=== PATIENT | female | born 1980 | race Caucasian/White ===

== ENCOUNTER 2019-05-07 20:38 | Inpatient (IN) | payer BC ==
[2019-05-07 21:27] VITALS: TEMP 98.2; BMI 36.9
[2019-05-07] MEDS ORDERED: Butorphanol Tartrate 1 MG/ML VIAL SLOW IVP PRN (21:50)
[2019-05-07] MEDS ORDERED: Ondansetron PF 4 MG/2 ML Vial IVP PRN (21:50)
[2019-05-07] MEDS ORDERED: Promethazine HCl 25 MG/ML VIAL IM PRN (21:50)
[2019-05-07] MEDS ORDERED: hydrALAZINE 20 MG/ML VIAL SLOW IVP PRN (21:50)
[2019-05-07] MEDS ORDERED: NIFEdipine 10 MG CAP PO SCH (22:00)
[2019-05-07 22:26] LABS: Medtox Reader # READER 4
[2019-05-07 22:27] LABS: Amphetamine Not Detected (NotDetected); Barbiturates Screen Not Detected (NotDetected); Benzodiazepine Screen Not Detected (NotDetected); Cocaine Metabolite Screen Not Detected (NotDetected); Medtox Control Line Valid? VALID (VALID); Methadone Not Detected (NotDetected); Methamphetamine Not Detected (NotDetected); Opiate Screen Not Detected (NotDetected); Oxycodone Screen Not Detected (NotDetected); Phencyclidine (PCP) Not Detected (NotDetected); THC/Cannabinoid Screen Not Detected (NotDetected); Tricyclic Screen Not Detected (NotDetected)
[2019-05-07] MEDS: Betamet Acet/Betamet Na Ph 30 MG/5 ML VIAL IM SCH (22:33)
[2019-05-07 22:41] LABS: Creatinine, Urine 39.55 mg/dL (47-110); Protein, Urine Random Quant Less than 10 mg/dL (1-14)
--- NOTE | 2019-05-07 22:44 | HP ---
TIME: 20:10. TIME OF EVALUATION: From 21:50 until 22:05. LOCATION: Labor and Delivery. REASON FOR ADMISSION: Severe range of blood pressures at 32 weeks and 6 days. This is a patient who had care in [place] and who is scheduled to see Briana Gotti and luan Aranda, later on next week. HISTORY OF PRESENT ILLNESS: This is a 38-year-old G2, P0, AB1, who is status post IVF this , who is now at 32 weeks and 6 days, who drove from [place] here with a family member and started complaining of headache. She went to the store and her blood pressure at the store was 186/110. She denies visual changes or right upper quadrant pain. She was followed by [facility] in [place] and had a recent ultrasound done on Saturday and the baby was "5 pounds and 11 ounces." She was also on baby aspirin. Although she does not have a history of chronic hypertension, she was to be started on oral Procardia 60 mg p.o. XL by her doctor in [place] due to an elevated blood pressure, but then on repeat blood pressure followup, it was normal, so he held off. She is here for possible blood pressure evaluation as she has not established care yet. REVIEW OF SYSTEMS: Complete review of systems was checked and is otherwise negative unless specified in the HPI. PAST MEDICAL HISTORY: Significant for hypothyroid and she takes Synthroid. This is not a new diagnosis. OTHER MEDICATIONS: Include low-dose aspirin, which she has been taking. Synthroid 50mcg, alternating with 75mcg PAST SURGICAL HISTORY: Includes a D and C in the past. She also had right and left knee surgery. ALLERGIES: ADHESIVE TAPE. SOCIAL HISTORY: Negative for alcohol, tobacco, or drug use. PHYSICAL EXAMINATION: VITAL SIGNS: Blood pressures 172/88, 166/80, and 161/78. GENERAL: She is in no acute distress. ABDOMEN: Soft and nontender. Cervical exam was deferred, but there is no gross evidence of bleeding. NST: On the nonstress test, heart tracing is reactive for 32 weeks with moderate variability and no pathological decelerations. There are no contractions on tocodynamometer. Baseline is around 130. ASSESSMENT: This is a 38-year-old, G2, P0, status post IVF this , who is at 32 weeks and 6 days with a due date of June 26, 2019, with -induced hypertension, not otherwise specified. PLAN: 1. I have seen the patient at bedside and given a detailed plan per ACOG guidelines. 2. I have written the plan on the white board in her room. 3. I will check a TSH due to her Synthroid use. 4. I have ordered a CBC, CMP, and a urine protein and creatinine. 5. I have ordered Celestone for lung maturity. 6. I have called Dr. Pulido and discussed the case with him in case we have to do delivery. 7. I have ordered all the routine OB labs including GBS culture. 8. I have ordered an ultrasound here for weight and presentation as the baby was breech on last ultrasound in [place]. 9. I have ordered Procardia 10 mg p.o. x1 now and we will see what she does. 10. I discussed with her that expectant management is the goal now due to immaturity of the child, but we may have to deliver if she has persistent severe breakthrough pressures on medication. Job ID: [id number] MTDConcepcion
--- NOTE | 2019-05-07 23:34 | ULT ---
US OB Complete STANDARD HISTORY: with hypertension. COMPARISON: None. FINDINGS: Real-time imaging of the pelvis shows a single viable intrauterine in a breech pr esentation. Cervical canal length is 3.9 cm. The amniotic fluid index is 11.1. The placenta is anterior in location. No previa. measurements are as follows: BPD: 8.5 cm, 34 weeks 3 days. Head circumference: 31.8 cm, 35 weeks 5 days. Abdominal circumference: 31.7 cm, 35 weeks 5 days. Femur length: 6.8 cm, 35 weeks 1 days. Limited assessment of anatomy was performed for this exam. The heart rate was 136 bpm. IMPRESSION: Single viable intrauterine in a breech presentation overall measurements corres ponding to a gestational age of 35 weeks 2 days with an estimated date of delivery of 06/09/2019. Placenta which is anterior in location, no previa.
[2019-05-08 00:04] LABS: Hemoglobin 11.9 g/dL (12.0-16.0); Mean Corpuscular HGB CONC 34.5 g/dL (32.0-36.0); Mean Corpuscular Hemoglobin 28.9 pg (27.0-31.0); Mean Corpuscular Volume 83.9 fL (78.0-98.0); Mean Platelet Volume 8.2 fL (7.4-10.4); Platelet Count 254 thou/uL (130-400); RBC Distribution Width 12.8 % (11.5-14.5); Red Blood Cell (RBC) Count 4.11 mill/uL (4.20-5.40)
[2019-05-08 00:28] LABS: ALT (SGPT) 9 U/L (8-55); AST (SGOT) 11 U/L (5-34); Albumin 3.4 g/dL (3.5-5.0); Alkaline Phosphatase 89 U/L (40-110); Anion Gap 13 mmol/L (10-20); BUN (Urea Nitrogen) 12 mg/dL (7.0-18.7); Bilirubin, Total 0.2 mg/dL (0.2-1.2); Calc. Creatinine Clearance 219 mL/min (70-130); Calcium 10.1 mg/dL (7.8-10.44); Carbon Dioxide 23 mmol/L (22-29); Chloride 104 mmol/L (98-107); Estimated GFR-MDRD Greater than 90; Globulin 2.7 g/dL (2.4-3.5); Glucose 89 mg/dL (70-105); Potassium 3.3 mmol/L (3.5-5.1); Protein, Total 6.1 g/dL (6.0-8.3); Sodium 137 mmol/L (136-145)
[2019-05-08 00:35] LABS: Syphilis Antibody Nonreactive (Nonreactive); Syphilis Antibody Index 0.03 S/CO (<1.00 Non-Reactive)
[2019-05-08 00:36] LABS: HBSAg Index 0.19 S/CO (0-0.99); Hep B Surf Ag Non-Reactive S/CO (NonReactive)
[2019-05-08 00:46] LABS: HIV (1/2) Antibody/Antigen Non-Reactive (NonReactive); HIV 1/2 INDEX 0.08 S/CO (<1.00)
--- NOTE | 2019-05-08 00:46 | PDOC.EVN ---
Event Note - Event Note Event Note: Lab check: labs ok TSH ok UP negative Tox negative
--- NOTE | 2019-05-08 00:47 | PDOC.EVN ---
Event Note - Event Note Event Note: sono breech presentation
--- NOTE | 2019-05-08 05:50 | PDOC.LDPN ---
Labor & Delivery Progress Note - Objective Vital signs reviewed and normal: yes (BPs are normal without meds (one BP of 150 ).) General: resting Uterine fundus: non tender [place] contractions every: none - Assessment (1) Advanced maternal age (AMA), 40 years or greater Code(s): [id number] - Current Visit: Yes Status: Acute (2) induced hypertension Code(s): O13.9 - GESTATIONAL HTN W/O SIGNIFICANT PROTEINURIA, UNSP TRIMESTER Current Visit: Yes Status: Acute Plan: other (Resting well. No PIH sxs. Requesting DC to home after second celestone this pm at 2200. Off monitors. Follow BPs for now. If home thios pm, needs follow up as scheduled with Jayla braswell.)
[2019-05-08] MEDS ORDERED: Levothyroxine Sodium 50 MCG TAB PO SCH (06:00)
[2019-05-08] MEDS ORDERED: Aspirin 81 mg Enteric Coated Tablet PO SCH ×2 (09:00→21:00)
[2019-05-08 09:18] VITALS: BP 139/64
[2019-05-08] MEDS: Betamet Acet/Betamet Na Ph 30 MG/5 ML VIAL IM SCH (21:51)
--- NOTE | 2019-05-08 22:23 | PDOC.EVN ---
Event Note - Event Note Event Note: Pg given next dose of steroids. Pt had some elevated BP early in the afternoon. Was given one dose of Hydralazine 5mg once. Since then BP has been relatively stable. No severe range pressures noted. most pressures have even ranged from 120-130. Pt denies any chest pain, SOB, headaches, vision changes. Denies any swelling. At this time we will discharge patient home. Pt has BP cuff. Advised at this time to monitor BP at home and has OB f/u visit on Saturday. Discussed return precautions. At this time after BP was stable throughout afternoon and night decided pt did not need any BP medication at this time. Addendum - Attending - Attending Attestation Date/Time: 05/09/19 [id number] I personally evaluated the patient and discussed the management with Dr. Ugalde. 38 yo at 33 weeks now s/p steroids x 2 doses. BPs look very good this PM. Will DC home with precautions, to f/u early this week for BP check at [facility]. I agree with the History, Examination, Assessment and Plan documented above.
--- NOTE | 2019-05-09 01:29 | DIS ---
DATE OF ADMISSION: 05/07/2019 DATE OF DISCHARGE: 05/08/2019 CONSULTS: None. IMAGING: ultrasound on 05/07/2019 showed single viable intrauterine in a breech presentation, overall measuring corresponding gestational age of 35 weeks and 2 days with an estimated date of delivery of 06/09/2019. Placenta in anterior location. No previa. DISCHARGE DIAGNOSES: 1. . 2. Advanced maternal age. 3. Gestational hypertension versus chronic hypertension. DISCHARGE MEDICATIONS: None. BRIEF HISTORY OF PRESENT ILLNESS AND HOSPITAL COURSE: This is a 38-year-old, G2, P0, AB1, who is status IVF , who comes in at 32 weeks and 6 days, who comes in from [place]. She has been on a baby aspirin throughout . She was started on oral Procardia 60 mg XL by due to elevated blood pressure, but then on repeat blood pressure followup, it was normal, so they held off. She is here for possible blood pressure elevation found at home. When she was initially admitted, her blood pressure was found to be 172/88, then 166/80, and then 161/78. We gave her one time dose of Procardia 10 mg, ordered routine OB labs which were overall insignificant. She had mild hypokalemia at 3.3. Her urine protein creatinine ratio was low. UDS was negative. Syphilis nonreactive. Hepatitis B nonreactive. HIV negative. Her hemoglobin was 11.9. We would trend her blood pressures throughout the day. When she was admitted, she was given a dose of Celestone and was kept here for 24 hours. Her blood pressures trended out into 130s and 140s. She did have a few 150s, had a few more elevations afternoon, gave one time dose of 5 mg hydralazine and since then, her blood pressures were ranging in the 120s and 130s. She got her 2nd dose of Celestone at 10 o'clock at night. At 2400 hours, the patient was doing well, was asymptomatic, so at this time we discharged her. DISPOSITION: Stable. DISCHARGE LOCATION: Home. ACTIVITY: Activity as tolerated. DIET: Regular diet. 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 She has appointment with Saturday to establish care. Discussed routine blood pressure precautions. She has a blood pressure cuff, gave instructions on checking blood pressure and gave her return precautions. Job ID: [id number]
== END 2019-05-08 22:20 | disposition home health service (06) | DRG 833 ==
LOC: L&D/OP 20:38 → L&D 21:05
PROVIDERS: ADMIT Obstetrics & Gynecology; ATTEND Obstetrics & Gynecology
DX: O13.3 Gestational [pregnancy-induced] hypertension without significant proteinuria, third trimester (principal); O09.523 Supervision of elderly multigravida, third trimester; Z3A.32 32 weeks gestation of pregnancy; O99.283 Endocrine, nutritional and metabolic diseases complicating pregnancy, third trimester; E03.9 Hypothyroidism, unspecified; O32.1XX0 Maternal care for breech presentation, not applicable or unspecified; E87.6 Hypokalemia
CPT/HCPCS: 36415; 76805; 80053; 80306; 82570; 84156; 84443; 85027; 86762; 86780; 86850; 86870; 86900; 86901; 87081; 87340; 87389; J0360; J0702

== ENCOUNTER 2019-05-12 08:30 | Day surgery (SDC) | payer BC ==
[2019-05-12] MEDS ORDERED: hydrALAZINE 20 MG/ML VIAL SLOW IVP PRN (09:37)
[2019-05-12 10:15] LABS: ALT (SGPT) 10 U/L (8-55); AST (SGOT) 11 U/L (5-34); Albumin 3.6 g/dL (3.5-5.0); Alkaline Phosphatase 97 U/L (40-110); Anion Gap 14 mmol/L (10-20); BUN (Urea Nitrogen) 10 mg/dL (7.0-18.7); Bilirubin, Total 0.3 mg/dL (0.2-1.2); Calc. Creatinine Clearance 0 mL/min (70-130); Calcium 10.1 mg/dL (7.8-10.44); Carbon Dioxide 22 mmol/L (22-29); Chloride 104 mmol/L (98-107); Estimated GFR-MDRD Greater than 90; Globulin 2.9 g/dL (2.4-3.5); Glucose 122 mg/dL (70-105); Potassium 3.5 mmol/L (3.5-5.1); Protein, Total 6.5 g/dL (6.0-8.3); Sodium 136 mmol/L (136-145)
[2019-05-12 10:16] LABS: #Basophils 0.1 thou/uL (0.0-0.2); #Eosinphils 0.2 thou/uL (0.0-0.7); #Monocytes 1.1 thou/uL (0.11-0.59); #Neutrophils 13.5 thou/uL (1.40-6.50); %Basophils 0.4 % (0.0-1.0); %Eosinophils 1.1 % (0.0-10.0); %Monocytes 6.5 % (0.0-10.0); %Neutrophils 80.1 % (42.0-75.0); Hemoglobin 12.7 g/dL (12.0-16.0); Mean Corpuscular HGB CONC 34.7 g/dL (32.0-36.0); Mean Corpuscular Volume 83.6 fL (78.0-98.0); Platelet Count 292 thou/uL (130-400); RBC Distribution Width 12.9 % (11.5-14.5); Red Blood Cell (RBC) Count 4.37 mill/uL (4.20-5.40); White Blood Cell (WBC) Count 16.8 thou/uL (4.8-10.8)
[2019-05-12 10:55] LABS: Creatinine, Urine 89.21 mg/dL (47-110)
--- NOTE | 2019-05-12 17:48 | SS ---
DATE OF ADMISSION: 05/12/2019 DATE OF DISCHARGE: 05/12/2019 EVALUATING PHYSICIAN: Biju Patino MD. CHIEF COMPLAINT: Elevated blood pressure at home. HISTORY OF PRESENT ILLNESS: Ms. Garcia is a 38-year-old, white, G2, P0, AB1, with an estimated date of confinement of 06/26/2019, who presents complaining of blood pressures to 180s systolic on her blood pressure cuff at home. Of note, is the fact that she was seen here with elevated blood pressures on the 12th of this month and was given a course of steroids. Her blood pressure stabilized and she was sent home on no medications. At the present time, she denies vaginal bleeding or loss of fluid. She reports active movement. PAST OBSTETRICAL HISTORY: One spontaneous miscarriage. PAST MEDICAL HISTORY: She was told she was possibly hypertensive over 10 years ago. Significant now for occasional PACs and hypothyroidism. PAST SURGICAL HISTORY: Includes both right and left knee surgeries, tonsillectomy and adenoidectomy, and D and C. CURRENT MEDICATIONS: 1. vitamins. 2. Synthroid 50 mcg daily. 3. Aspirin 81 mg daily. ALLERGIES: NO KNOWN ALLERGIES. SOCIAL HISTORY: Denies tobacco, alcohol, or drug use. FAMILY HISTORY: Unremarkable. REVIEW OF SYSTEMS: Denies headache, blurry vision, ruptured membranes, vaginal bleeding, or decreased movement. PHYSICAL EXAMINATION: VITAL SIGNS: Serial blood pressures are 142/94, 143/83, 143/83, and 147/90. GENERAL: She is pleasant, although appears anxious. She is in no acute distress. ABDOMEN: Soft, nontender, and gravid. heart rate tracing is stable with spontaneous accelerations. No decelerations are seen. No significant uterine contractions are noted. LABORATORY DATA: White count 16.8. Hemoglobin and hematocrit are 12.7 and 36.5. Platelet count 292,000. Chemistry; sodium 136, potassium 3.5, BUN 10, creatinine 0.63. Total bilirubin 0.3, AST and ALT are 11 and 10 respectively. Alkaline phosphatase is 97. Urine protein to creatinine ratio returns 0.157. ASSESSMENT: 1. A 33 and 4/7 week intrauterine . 2. Suspect chronic hypertension, currently without evidence of superimposed preeclampsia at this time. PLAN: In view of the patient's clinical course, at this time, I have elected to initiate Procardia XL 30 mg daily once a day. She was given a prescription for this x30 days. She has a followup appointment at [facility] to initiate care there. PIH precautions were reviewed with her in detail. Job ID: [id number] MTDD
== END 2019-05-12 11:30 | disposition home or self-care (01) ==
LOC: L&D/OP 08:30
PROVIDERS: ATTEND Student in an Organized Health Care Education/Training Program
DX: O99.89 Other specified diseases and conditions complicating pregnancy, childbirth and the puerperium (principal); R03.0 Elevated blood-pressure reading, without diagnosis of hypertension; O99.283 Endocrine, nutritional and metabolic diseases complicating pregnancy, third trimester; E03.9 Hypothyroidism, unspecified; O09.523 Supervision of elderly multigravida, third trimester; O09.293 Supervision of pregnancy with other poor reproductive or obstetric history, third trimester; Z3A.33 33 weeks gestation of pregnancy; Z79.82 Long term (current) use of aspirin; Z79.899 Other long term (current) drug therapy; Z91.048 Other nonmedicinal substance allergy status
CPT/HCPCS: 36415; 80053; 82570; 84156; 85025; 99283

== ENCOUNTER 2019-05-14 19:37 | Inpatient (IN) | payer BC ==
[~2019-05-14 19:37] MED LIST: Bupivacaine/Epinephrine 0.25% 30 ML VIAL ONE
[2019-05-14] MEDS ORDERED: Labetalol HCl 100 MG/20 ML VIAL SLOW IVP SCH (20:00)
[2019-05-14] MEDS ORDERED: Labetalol HCl 100 MG/20 ML VIAL SLOW IVP PRN (20:01)
[2019-05-14] MEDS ORDERED: Labetalol HCl 100 MG/20 ML VIAL ONE (20:05)
[2019-05-14] MEDS ORDERED: HYDROcodone/Acetaminophen 5/325 mg Tablet PO PRN ×2 (20:11)
[2019-05-14] MEDS ORDERED: Lidocaine 1% (PF) 30 ML VIAL SC PRN (20:11)
[2019-05-14] MEDS ORDERED: NS / Oxytocin 40 units/1000ml 1,000 ML IV PRN (20:11)
[2019-05-14] MEDS ORDERED: Ibuprofen 800 MG TAB PO PRN (20:11)
[2019-05-14] MEDS ORDERED: Ondansetron PF 4 MG/2 ML Vial IVP PRN (20:11)
[2019-05-14] MEDS ORDERED: Butorphanol Tartrate 1 MG/ML VIAL SLOW IVP PRN (20:11)
[2019-05-14] MEDS ORDERED: Calcium Gluc 4.6 MEQ/10 ML (100 MG/ML) SLOW IVP PRN (20:11)
[2019-05-14] MEDS ORDERED: Meperidine HCl/PF 25 MG/ML VIAL IM/IV PRN (20:11)
[2019-05-14] MEDS ORDERED: Promethazine HCl 25 MG/ML VIAL IM PRN (20:11)
[2019-05-14] MEDS ORDERED: Magnesium Sulfate 20 GM/WATER 500 ML BAG IVPB SCH (20:15)
[2019-05-14] MEDS ORDERED: NS w/ Oxytocin 10 units 500 ML IV SCH (20:15)
[2019-05-14 20:29] LABS: #Eosinphils 0.2 thou/uL (0.0-0.7); #Lymphocytes 2.9 thou/uL (1.20-3.40); #Monocytes 1.1 thou/uL (0.11-0.59); %Basophils 0.3 % (0.0-1.0); %Eosinophils 1.2 % (0.0-10.0); %Lymphocytes 17.9 % (21.0-51.0); %Monocytes 6.8 % (0.0-10.0); %Neutrophils 73.9 % (42.0-75.0); Hemoglobin 12.9 g/dL (12.0-16.0); Mean Corpuscular HGB CONC 35.1 g/dL (32.0-36.0); Mean Corpuscular Hemoglobin 29.2 pg (27.0-31.0); Mean Corpuscular Volume 83.2 fL (78.0-98.0); Mean Platelet Volume 8.2 fL (7.4-10.4); Platelet Count 314 thou/uL (130-400); RBC Distribution Width 12.8 % (11.5-14.5); Red Blood Cell (RBC) Count 4.41 mill/uL (4.20-5.40); White Blood Cell (WBC) Count 16.3 thou/uL (4.8-10.8)
[2019-05-14 20:45] LABS: ALT (SGPT) 10 U/L (8-55); AST (SGOT) 13 U/L (5-34); Albumin 3.6 g/dL (3.5-5.0); Alkaline Phosphatase 106 U/L (40-110); Anion Gap 16 mmol/L (10-20); BUN (Urea Nitrogen) 11 mg/dL (7.0-18.7); Bilirubin, Total 0.3 mg/dL (0.2-1.2); Calc. Creatinine Clearance 0 mL/min (70-130); Calcium 9.9 mg/dL (7.8-10.44); Carbon Dioxide 19 mmol/L (22-29); Chloride 104 mmol/L (98-107); Estimated GFR-MDRD Greater than 90; Globulin 2.7 g/dL (2.4-3.5); Glucose 148 mg/dL (70-105); Potassium 3.8 mmol/L (3.5-5.1); Protein, Total 6.3 g/dL (6.0-8.3); Sodium 135 mmol/L (136-145)
[2019-05-14] MEDS: Lactated Ringer's 1,000 ML IV SCH (20:45)
[2019-05-14] MEDS: Magnesium Sulfate 20 gm/500 ml 20 GM/500 ML BAG IVPB SCH (20:46)
[2019-05-14] MEDS ORDERED: Penicillin G Potassium 5 MILL.UNITS in Sodium Chloride 0.9% 100 ML IVPB SCH (21:00)
[2019-05-14 21:03] LABS: Syphilis Antibody Nonreactive (Nonreactive); Syphilis Antibody Index 0.03 S/CO (<1.00 Non-Reactive)
[2019-05-14 21:03] LABS: Protein, Urine Random Quant Less than 10 mg/dL (1-14)
--- NOTE | 2019-05-14 21:20 | PDOC.LDHP ---
Labor and Delivery H&P Chief complaint: other (elevated BPs at home) HPI: 38 yo WF here c/o BARRIENTOS with elevated BPs at home. Seen here x 2 with elevated BPs, steroids given 1 week ago. Initiated care with Dr. Aranda this week. Denies visual changes or RUQ pain. Current gestational age (weeks): 34 Due date: 06/26/19 Dating criteria: first trimester ultrasound Grav: 2 Para: 0 OB History Details: [place] state. This is an IVF . Current complications: other (Seen here x 2 as above, steroids given .) Abnormal US findings: No Past Medical History: Told was hypertensive many years ago, never on meds. Hypothyroid Occ. PACs Current medications: pre- vitamins, other (ASA, Procardia XL 30 QD Synthroid 50 mcg/d) Previous surgical history: other (kness x2, T&A, D&C) Allergies/Adverse Reactions: Allergies Allergy/AdvReac Type Severity Reaction Status Date / Time adhesive tape Allergy Intermediate Rash Verified 05/12/19 09:15 Social history: none - Physical Exam Abnormal vital signs: 170/98, 180/86 General: NAD Heart: RRR Lungs: CTAB Abdomen: gravid Extremeties: trace edema FHT: category 1 [place] contractions every: no - Vaginal Exam cm dilated: 0 Effacement: 0% Station: -1 - OB Labs GBS: unknown - Assessment L&D Assessment: medically indicated induction 34 week IUP, IVF Suspect HTN with superimposed severe PIH - Plan Plan: admit to L&D, cervical ripening, GBS antibiotic prophylaxis, magnesium for seizure prophylaxis, anesthesia consult for pain management, other ( Labetalol for BP control Dr. Aranda aware and agrees with plan to move to delivery)
--- NOTE | 2019-05-14 21:24 | ULT ---
LIMITED OBSTETRICAL ULTRASOUND: 05/14/19 INDICATION: History of induced hypertension with breech presentation. FINDINGS: A single live intrauterine gestation with cardiac activity noted at 153 beats per minute. NAVI is 7.6 cm. The placenta is anterior in location without evidence of previa. The fetus is in vertex presentat ion. Biparietal diameter is 9.69 cm giving an estimated gestational age of 35 weeks and 1 day (88th percen tile). The head circumference was 32.8 cm giving an estimated gestational age of 37 weeks and 3 days (92% pe rcentile). The abdominal circumference was 33.55 cm giving an estimated gestational age of 37 weeks, 3 days. The femoral neck is 6.97 cm giving an estimated gestational age of 35 weeks and 5 days. The estimated weight is 3023 grams (99th percentile). Estimated gestational age by ultrasound is 36 weeks, 3 days. Estimated due date 06/09/19. Clinical ges tational age is 33 weeks, 6 days with estimated due date of 06/26/19. IMPRESSION: Single live intrauterine gestation with size and dates as above. NAVI is 7.6 cm. POS: NELSON
[2019-05-14] MEDS: Misoprostol 100 MCG TAB VAG SCH (21:33)
[2019-05-14 23:14] LABS: HBSAg Index 0.15 S/CO (0-0.99); Hep B Surf Ag Non-Reactive S/CO (NonReactive)
[2019-05-14 23:40] VITALS: BMI 36.1
[2019-05-15] MEDS: Misoprostol 100 MCG TAB VAG SCH ×5 (00:48→08:59)
[2019-05-15] MEDS ORDERED: Labetalol HCl 100 MG/20 ML VIAL SLOW IVP SCH (03:00)
[2019-05-15] MEDS: Acetaminophen 500 MG TAB PO PRN ×2 (04:32→10:35)
[2019-05-15] MEDS: Penicillin G 2.5 MILL.units 2.5 MILL.UNITS in Premix Bag 1 BAG IVPB SCH ×4 (07:06→17:43)
[2019-05-15] MEDS: Lactated Ringer's 1,000 ML IV SCH ×3 (07:16→17:15)
--- NOTE | 2019-05-15 10:18 | PDOC.LDPN ---
Labor & Delivery Progress Note - Subjective Subjective: painful contractions - Objective Vital signs reviewed and normal: yes General: NAD Uterine fundus: non tender Dilation: 1 Effacement: 50% Station: -3 (cook balloon placed 60/60) FHT: category 1 [place] contractions every: 3min -: s/p cytotec x 4, cook balloon placed, cont po cytotec. On mag for sz ppx, no s/ sx toxicity or PIH, UOP adequate. Brent consult for prematurity, s/p BMZ x 2 last week. EFW [id number] on sono on Saturday. FHT reassuring. Discussed plan of care with patient and partner.
[2019-05-15] MEDS ORDERED: Labetalol HCl 100 MG/20 ML VIAL SLOW IVP PRN (10:28)
[2019-05-15] MEDS ORDERED: Fentanyl 4 mcg/Bup 0.1% Cadd 100 ML ONE (16:54)
--- NOTE | 2019-05-15 16:55 | PDOC.LDPN ---
Labor & Delivery Progress Note - Subjective Subjective: painful contractions - Objective Vital signs reviewed and normal: yes Abnormal vital signs: occ mild range bps General: breathing through contractions Uterine fundus: non tender Dilation: 3 Effacement: 50% Station: -2 FHT: category 1 [place] contractions every: 3-5min AROM: clear fluid Plan: labor augmentation, other (epidural for pain)
[2019-05-15] MEDS: Magnesium Sulfate 20 gm/500 ml 20 GM/500 ML BAG IVPB SCH (17:05)
[2019-05-15] MEDS: Misoprostol 100 MCG TAB PO SCH ×2 (17:41→17:42)
[2019-05-15] MEDS ORDERED: EPHEDRINE 25 MG/5 ML SYRINGE SLOW IVP PRN (17:51)
[2019-05-15] MEDS ORDERED: Ondansetron PF 4 MG/2 ML Vial IVP PRN (17:51)
[2019-05-15] MEDS ORDERED: Naloxone HCl 0.4 mg/ml Vial IVP PRN ×2 (17:51)
[2019-05-15] MEDS ORDERED: diphenhydrAMINE 50 MG/ML VIAL IVP PRN (17:51)
[2019-05-15] MEDS ORDERED: Promethazine HCl 25 MG/ML VIAL IM PRN (17:51)
[2019-05-15] MEDS ORDERED: Lactated Ringer's 500 ML IV PRN (17:51)
[2019-05-15] MEDS ORDERED: Acetaminophen 325 MG TAB PO PRN (17:51)
[2019-05-15] MEDS ORDERED: PHENYLEPHRINE-NS 100 MCG/ML 10 ML SYRINGE ONE (17:57)
[2019-05-15] MEDS ORDERED: Communication Order-Pharmacy FS SCH (18:00)
[2019-05-15] MEDS ORDERED: Fentanyl 4 mcg/Bupivacaine 0.1% Cassette 100 ML EPIDURAL SCH (18:00)
--- NOTE | 2019-05-15 21:42 | PDOC.LDPN ---
Labor & Delivery Progress Note - Subjective Subjective: comfortable - Objective Vital signs reviewed and normal: yes Abnormal vital signs: mild range BPs with occasional severe General: NAD, resting Uterine fundus: non tender Dilation: 4 Effacement: 90% Station: -2 FHT: category 1 [place] contractions every: 3 IUPC placed: yes FSE placed: yes Plan: continue plan of care
--- NOTE | 2019-05-15 23:04 | PDOC.BPN ---
- Brief Progress Note Called to room to evaluate patient who feels "woozy" and sweaty. Patient appears well, NAD. Vitals stable, normal glucose. Will get EKG and mag level. FSE came off, replaced without difficulty. SVE 4/-2, much easier exam than previous. Continue to monitor.
[2019-05-16] MEDS ORDERED: Fentanyl 4 mcg/Bup 0.1% Cadd 100 ML ONE (01:48)
[2019-05-16] MEDS: Lactated Ringer's 1,000 ML IV SCH ×2 (02:05→13:54)
[2019-05-16] MEDS: Magnesium Sulfate 20 gm/500 ml 20 GM/500 ML BAG IVPB SCH ×2 (03:23→15:07)
[2019-05-16] MEDS: Acetaminophen 500 MG TAB PO PRN (03:33)
[2019-05-16] MEDS: Misoprostol 100 MCG TAB PO SCH ×3 (07:41→12:16)
[2019-05-16] MEDS: Penicillin G 2.5 MILL.units 2.5 MILL.UNITS in Premix Bag 1 BAG IVPB SCH ×3 (07:41→12:16)
[2019-05-16] MEDS ORDERED: Bicitra 30 ML UDCUP ONE (08:11)
[2019-05-16] MEDS ORDERED: Azithromycin 500 MG VIAL ONE (08:53)
[2019-05-16] MEDS ORDERED: PHENYLEPHRINE-NS 100 MCG/ML 10 ML SYRINGE ONE (09:01)
[2019-05-16] MEDS ORDERED: MORPHINE 5 MG/10 ML PF VIAL ONE (09:01)
[2019-05-16] MEDS ORDERED: Ondansetron PF 4 MG/2 ML Vial ONE (09:01)
[2019-05-16] MEDS ORDERED: EPHEDRINE 25 MG/5 ML SYRINGE ONE (09:01)
[2019-05-16] MEDS ORDERED: Oxytocin 10 UNITS/ML VIAL ONE (09:01)
--- NOTE | 2019-05-16 09:01 | PDOC.LDPN ---
Labor & Delivery Progress Note - Subjective Subjective: comfortable - Objective Abnormal vital signs: mild-severe range bp General: NAD Uterine fundus: non tender Dilation: 4 Effacement: 90% Station: -1 FHT: category 1 [place] contractions every: 3min -: No SVE change since 1800 yesterday despite adequate uterine contractions overnight and AROM for 16 hours. No e/o infection but discussed increasing risk with continued labor trial. Rec PCS at this point for failed induction and severe PIH superimposed on CHTN at 34w. Pt and spouse agree. will cont Mag. No IV antihypertensives needed overnight. Ancef and azithro for ppx. Epidural working. Cont mag PP. All questions answered.
[2019-05-16] MEDS ORDERED: Lidocaine 2% 10 ML INJ ONE ×2 (09:02→09:37)
--- NOTE | 2019-05-16 09:06 | PDOC.OPDEL ---
OB Operative/Delivery Note Delivery Dr/Surgeon: Rosi Pre-Delivery Diagnosis: other (failed induction, severe PIH, 34w) Procedure/Post Delivery Dx: primary low transverse CS Weeks gestation: 34 Anesthesia: epidural - Findings A Sex: male - Additional Findings/Plan Placenta delivered: spontaneous findings: low transverse hysterotomy without extension, normal uterus, normal tubes, normal ovaries Post delivery plan: recovery in LICU
[2019-05-16] MEDS ORDERED: CEFAZOLIN 2 GM in Premix Bag 1 BAG IVPB SCH (09:15)
[2019-05-16] MEDS ORDERED: Azithromycin 500 MG in Sodium Chloride 0.9% 250 ML 250 ML IVPB SCH (09:15)
[2019-05-16] MEDS ORDERED: Bicitra 30 ML UDCUP PO SCH (09:15)
[2019-05-16] MEDS ORDERED: Carboprost 250 MCG/ML AMP ONE (09:47)
[2019-05-16] MEDS ORDERED: Misoprostol 200 MCG TAB ONE (09:48)
[2019-05-16] MEDS ORDERED: Ondansetron PF 4 MG/2 ML Vial IVP PRN ×2 (10:00→12:17)
[2019-05-16] MEDS ORDERED: Meperidine HCl/PF 25 MG/ML VIAL SLOW IVP PRN (10:00)
[2019-05-16] MEDS ORDERED: Promethazine HCl 25 MG SUPP PR PRN (10:00)
[2019-05-16] MEDS ORDERED: L&D-Morphine 4 MG/ML VIAL SLOW IVP PRN (10:00)
[2019-05-16] MEDS ORDERED: HYDROmorphone 2 MG/ML VIAL SLOW IVP PRN (10:00)
[2019-05-16] MEDS ORDERED: Naloxone HCl 0.4 mg/ml Vial IVP PRN ×2 (10:00)
[2019-05-16] MEDS ORDERED: Promethazine HCl 25 MG/ML VIAL IM PRN ×2 (10:00→12:17)
[2019-05-16] MEDS ORDERED: Communication Order-Pharmacy FS SCH (10:00)
[2019-05-16] MEDS ORDERED: Ketorolac Tromethamine 30 MG/ML VIAL IVP PRN (10:00)
[2019-05-16] MEDS ORDERED: Ondansetron HCl/PF 4 MG/2 ML Vial IVP PRN (10:00)
[2019-05-16] MEDS ORDERED: Naloxone HCl 0.4 mg/ml Vial IV PRN (10:00)
[2019-05-16] MEDS ORDERED: diphenhydrAMINE 50 MG/ML VIAL IVP PRN (10:00)
[2019-05-16] MEDS ORDERED: Ketorolac Tromethamine 30 MG/ML VIAL IVP SCH (10:00)
[2019-05-16] MEDS ORDERED: Ketorolac Tromethamine 30 MG/ML VIAL ONE (10:01)
[2019-05-16] MEDS ORDERED: Hepatitis B Vaccine 10 MCG/0.5 ML SYR IM ONE (10:20)
[2019-05-16] MEDS ORDERED: Boudreaux's Butt Paste 16% Oin 30 GM TUBE TOP PRN (10:20)
[2019-05-16] MEDS ORDERED: Phytonadione Neonatal 1 MG/0.5 ML AMP IM SCH (10:30)
[2019-05-16] MEDS ORDERED: Erythromycin Base 0.5% Oint 1 GM TUBE EA EYE SCH (10:30)
--- NOTE | 2019-05-16 10:35 | PRG ---
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 In brief, I was asked by Dr. Aranda to assist with this primary for -induced hypertension and failure to progress/prolonged latent phase. I assisted and scrubbed in on this primary for the above reasons. The delivery was at around 34 weeks. NICU was present for delivery. No complications were noted. I participated from the initiation of the surgery up until skin closure. Job ID: [id number]
[2019-05-16] MEDS ORDERED: Bisacodyl 10 MG SUPP PR PRN (12:17)
[2019-05-16] MEDS ORDERED: hydrALAZINE 20 MG/ML VIAL SLOW IVP PRN (12:17)
[2019-05-16] MEDS ORDERED: Calcium Gluconate 4.6 MEQ in Sodium Chloride 0.9% 100 ML IVPB PRN (12:17)
[2019-05-16] MEDS ORDERED: Lanolin Ointment 7 GM TUBE TOP PRN (12:17)
[2019-05-16] MEDS ORDERED: diphenhydrAMINE 25 MG CAP PO PRN (12:17)
[2019-05-16] MEDS ORDERED: Acetaminophen 325 MG TAB PO PRN (12:17)
[2019-05-16] MEDS ORDERED: Morphine 2 MG/ML SYRINGE SLOW IVP PRN (14:06)
--- NOTE | 2019-05-16 21:49 | PDOC.EVN ---
Event Note - Event Note Event Note: PP check On MagSulfate BPs reviewed in QD...no severe BPs Continue plan.
[2019-05-16] MEDS ORDERED: Zolpidem Tartrate 5 MG TAB PO PRN (22:00)
[2019-05-16] MEDS ORDERED: HYDROcodone/Acetaminophen 5/325 mg Tablet PO PRN (22:00)
[2019-05-16] MEDS: Ibuprofen 800 MG TAB PO SCH (22:30)
--- NOTE | 2019-05-16 23:04 | PDOC.EVN ---
Event Note - Event Note Event Note: Called for UOP of 50ml last hr for last 2 hours so 100ml total. Mag in use. I will order 10mg SIVP lasix X 1 also to assist with some BP elevation now to 140s, when was 130s prior. I am ordering the lasix to assist mainly with the UOP and mag clearence. Follow UOP after the lasix.
[2019-05-16] MEDS ORDERED: Furosemide 20 MG/2 ML VIAL SLOW IVP SCH (23:15)
[2019-05-17] MEDS: HYDROcodone/Acetaminophen 5/325 mg Tablet PO PRN ×4 (00:26→22:23)
[2019-05-17] MEDS: Magnesium Sulfate 20 gm/500 ml 20 GM/500 ML BAG IVPB SCH (00:43)
[2019-05-17 06:13] LABS: Hemoglobin 9.9 g/dL (12.0-16.0); Mean Corpuscular HGB CONC 33.9 g/dL (32.0-36.0); Mean Corpuscular Hemoglobin 28.7 pg (27.0-31.0); Mean Corpuscular Volume 84.5 fL (78.0-98.0); Mean Platelet Volume 7.9 fL (7.4-10.4); Platelet Count 257 thou/uL (130-400); RBC Distribution Width 12.9 % (11.5-14.5); Red Blood Cell (RBC) Count 3.44 mill/uL (4.20-5.40); White Blood Cell (WBC) Count 17.3 thou/uL (4.8-10.8)
--- NOTE | 2019-05-17 06:34 | PDOC.PP ---
Post Progress Note Post Day #: 1 (currently on MagSulfate) Subjective: Doing well. PO intake tolerated: yes Flatus: yes Ambulation: yes Weight Weight 245 lb On QS, BPs reviewed. The BPs are normal range after the one time dose of lasix ( 10mg) yesterday. UOP is excellent and is now fluid deficit - Physical Examination General: NAD Respiratory: clear to auscultation bilaterally Abdominal: lochia, no distention, appropriately TTP Extremities: negative homans (B) Neurological: no gross focal deficits Psychiatric: A&Ox3, normal affect Result Diagrams: 05/17/19 06:02 05/14/19 20:20 Additional Labs: Post Labs Blood Type O NEGATIVE 05/14/19 20:20 Hep Bs Antigen Non-Reactive S/CO (NonReactive) 05/14/19 20:20 (1) delivery delivered Code(s): O82 - ENCOUNTER FOR DELIVERY WITHOUT INDICATION Status: Acute (2) Advanced maternal age (AMA), 40 years or greater Code(s): [id number] - Status: Acute (3) induced hypertension Code(s): O13.9 - GESTATIONAL HTN W/O SIGNIFICANT PROTEINURIA, UNSP TRIMESTER Status: Acute - Assessment/Plan POD 1 from primary CS for arrest of labor, PIH. Good UOP and BPs are normal. I have talked with Teresa, her RN. Patient may have a regular diet now and I ave ordered to DC the Mag at 0800. Likely to PP coffey this AM.
[2019-05-17] MEDS: Ibuprofen 800 MG TAB PO SCH ×3 (07:37→22:25)
[2019-05-17] MEDS: Ferrous Sulfate 325 MG TAB PO SCH ×3 (07:37→22:25)
[2019-05-17] MEDS ORDERED: Adacel (T-DAP) 0.5 ML SYRINGE IM ONE (09:00)
[2019-05-17] MEDS: Docusate Calcium (SURFAK) 240 MG CAP PO SCH ×3 (09:47→22:25)
[2019-05-17] MEDS ORDERED: Mupirocin 2% Ointment 22 GM Tube TOP PRN (14:49)
[2019-05-17] MEDS: Simethicone Chewable 80 MG TAB PO PRN (22:25)
[2019-05-18] MEDS: Ibuprofen 800 MG TAB PO SCH ×3 (05:14→21:59)
[2019-05-18] MEDS: HYDROcodone/Acetaminophen 5/325 mg Tablet PO PRN ×4 (05:14→22:03)
[2019-05-18] MEDS: Docusate Calcium (SURFAK) 240 MG CAP PO SCH ×2 (07:54→21:59)
[2019-05-18] MEDS: Simethicone Chewable 80 MG TAB PO PRN (07:54)
[2019-05-18] MEDS: Ferrous Sulfate 325 MG TAB PO SCH ×2 (07:54→21:59)
--- NOTE | 2019-05-18 21:35 | EKG ---
Test Reason : Blood Pressure : / mmHG Vent. Rate : 084 BPM Atrial Rate : 084 BPM P-R Int : 196 ms QRS Dur : 084 ms QT Int : 402 ms P-R-T Axes : 020 025 047 degrees QTc Int : 475 ms Normal sinus rhythm Normal ECG No previous ECGs available Confirmed by PHILL MONREAL, DR. Byrnes ([id number]) on 05/18/2019 9:35:05 PM Referred By: ELAN Confirmed By:DR. Fitz POLLOCK MD
[2019-05-19] MEDS: Ibuprofen 800 MG TAB PO SCH ×3 (05:40→21:10)
[2019-05-19] MEDS: HYDROcodone/Acetaminophen 5/325 mg Tablet PO PRN ×3 (07:10→21:18)
--- NOTE | 2019-05-19 07:42 | PDOC.PP ---
Post Progress Note Post Day #: 2 Subjective: feels good, no sx pih PO intake tolerated: yes Flatus: yes Ambulation: yes Vital Signs (12 hours) Temp Pulse Resp BP Pulse Ox 05/19/19 04:21 98.8 F 93 18 141/81 H 99 05/18/19 23:28 98.6 F 99 18 151/72 H 99 Weight Weight 245 lb - Physical Examination General: NAD Respiratory: non-labored breathing Abdominal: no distention, appropriately TTP Fundus firm & at: umb Skin: CS incision dry & intact ( petichial rash where tape around inc present, no induration) Neurological: no gross focal deficits Psychiatric: normal affect Result Diagrams: 05/17/19 06:02 05/14/19 20:20 Additional Labs: Post Labs Blood Type O NEGATIVE 05/14/19 20:20 Hep Bs Antigen Non-Reactive S/CO (NonReactive) 05/14/19 20:20 - Assessment/Plan POD2 s/p PCS for failed induction and PIH VSSAF PIH- s/p mag, occ mild range BP, monitor BP and start meds as necessary, asx, nl labs Met all postop milestones Mild asx anemia d/t surgical blood loss, cont iron and PNV Rh neg, RImm Baby in NICU Cont postop care
--- NOTE | 2019-05-19 08:56 | PDOC.PP ---
Post Progress Note Post Day #: 3 Subjective: tearful as baby is in NICU, BP noted w mild/isolated severe range, has a rash on abdomen where adhesive drape was, slowly improving. PO intake tolerated: yes Flatus: yes Ambulation: yes Vital Signs (12 hours) Temp Pulse Resp BP Pulse Ox 05/19/19 08:00 98.8 F 110 H 20 161/82 H 96 05/19/19 04:21 98.8 F 93 18 141/81 H 99 05/18/19 23:28 98.6 F 99 18 151/72 H 99 Weight Weight 245 lb - Physical Examination General: NAD Respiratory: non-labored breathing Abdominal: no distention Skin: CS incision dry & intact (rash noted at site of adheisve drape) Psychiatric: A&Ox3 (tearful) Result Diagrams: 05/17/19 06:02 05/14/19 20:20 Additional Labs: Post Labs Blood Type O NEGATIVE 05/14/19 20:20 Hep Bs Antigen Non-Reactive S/CO (NonReactive) 05/14/19 20:20 (1) delivery delivered Code(s): O82 - ENCOUNTER FOR DELIVERY WITHOUT INDICATION Status: Acute (2) Advanced maternal age (AMA), 40 years or greater Code(s): [id number] - Status: Acute (3) induced hypertension Code(s): O13.9 - GESTATIONAL HTN W/O SIGNIFICANT PROTEINURIA, UNSP TRIMESTER Status: Acute - Assessment/Plan POD3, severe range BP noted, will start Procardia 30XL and titrate if needed. Hydrocortisone reviewed for rash, instructed to stop mupirocin.
[2019-05-19] MEDS: Ferrous Sulfate 325 MG TAB PO SCH ×2 (10:21→21:10)
[2019-05-19] MEDS: Docusate Calcium (SURFAK) 240 MG CAP PO SCH ×2 (10:21→21:10)
[2019-05-19] MEDS ORDERED: NIFEdipine XL 30 MG TAB PO SCH (12:00)
[2019-05-19] MEDS: Triamcinolone 0.1% Cream 15 GM TUBE TOP SCH (21:12)
[2019-05-20] MEDS: NIFEdipine 10 MG CAP PO PRN ×2 (00:24→08:30)
[2019-05-20] MEDS: HYDROcodone/Acetaminophen 5/325 mg Tablet PO PRN ×2 (04:51→15:02)
[2019-05-20] MEDS: Ibuprofen 800 MG TAB PO SCH ×2 (06:19→14:41)
[2019-05-20] MEDS ORDERED: NIFEdipine XL 30 MG TAB PO SCH ×2 (09:00)
[2019-05-20] MEDS: Docusate Calcium (SURFAK) 240 MG CAP PO SCH (10:25)
[2019-05-20] MEDS: Ferrous Sulfate 325 MG TAB PO SCH (10:25)
[2019-05-20] MEDS: Triamcinolone 0.1% Cream 15 GM TUBE TOP SCH (10:26)
[2019-05-20 11:24] VITALS: BP 135/76; TEMP 98.8
--- NOTE | 2019-05-20 13:45 | PDOC.PP ---
Post Progress Note Post Day #: 4 PO intake tolerated: yes Flatus: yes Ambulation: yes Vital Signs (12 hours) Temp Pulse Resp BP BP Pulse Ox 05/20/19 11:23 98.8 F 103 H 20 135/76 05/20/19 10:24 99 133/73 05/20/19 09:10 99 18 133/73 98 05/20/19 08:15 101 H 20 179/80 H 98 05/20/19 08:00 99.0 F 98 20 160/81 H 98 05/20/19 04:47 98.1 F 94 18 137/84 98 Weight Weight 245 lb - Physical Examination General: NAD Respiratory: non-labored breathing Abdominal: no distention, appropriately TTP Fundus firm & at: umb-2 Extremities: negative homans (B) Skin: CS incision dry & intact Neurological: no gross focal deficits Psychiatric: normal affect Result Diagrams: 05/17/19 06:02 05/14/19 20:20 Additional Labs: Post Labs Blood Type O NEGATIVE 05/14/19 20:20 Hep Bs Antigen Non-Reactive S/CO (NonReactive) 05/14/19 20:20 - Assessment/Plan POD4 s/p PCS for failed IOL and SIPIH at 34w VSSAF PIH- s/p mag, started on procardia yesterday, BP wnl today, no sx PIH Met all postop milestones Cont PNV for mild asx anemia d/t surgical blood loss Rh pos RImm DC home FU 2 wk
== END 2019-05-20 15:15 | disposition home or self-care (01) | DRG 786 ==
LOC: ERS 19:37 → L&D/OP 19:43 → EDSTATUS 19:43 → L&D 20:11 → 3SW 05-17 11:29
PROVIDERS: ADMIT Obstetrics & Gynecology; ATTEND Obstetrics & Gynecology
PROC: 0U7C7ZZ Dilation of Cervix, Via Natural or Artificial Opening (ICD-10-PCS; 2019-05-15)
PROC: 10H07YZ Insertion of Other Device into Products of Conception, Via Natural or Artificial Opening (ICD-10-PCS; 2019-05-15)
PROC: 10D00Z1 Extraction of Products of Conception, Low, Open Approach (ICD-10-PCS; principal; 2019-05-16)
PROC: 10907ZC Drainage of Amniotic Fluid, Therapeutic from Products of Conception, Via Natural or Artificial Opening (ICD-10-PCS; 2019-05-16)
PROC: 3E033VJ Introduction of Other Hormone into Peripheral Vein, Percutaneous Approach (ICD-10-PCS; 2019-05-16)
PROC: 3E0P7VZ Introduction of Hormone into Female Reproductive, Via Natural or Artificial Opening (ICD-10-PCS; 2019-05-16)
DX: O10.02 Pre-existing essential hypertension complicating childbirth (principal); O60.14X0 Preterm labor third trimester with preterm delivery third trimester, not applicable or unspecified; O99.284 Endocrine, nutritional and metabolic diseases complicating childbirth; E03.9 Hypothyroidism, unspecified; O61.0 Failed medical induction of labor; O90.81 Anemia of the puerperium; Z3A.34 34 weeks gestation of pregnancy; Z37.0 Single live birth; Z79.82 Long term (current) use of aspirin; Z79.890 Hormone replacement therapy; D50.0 Iron deficiency anemia secondary to blood loss (chronic)
CPT/HCPCS: 36415; 36416; 51702; 76815; 80053; 82570; 83735; 84156; 85025; 85027; 86780; 86850; 86870; 86900; 86901; 87340; 93005; 93010; 99283; 99285; C1726; J0456; J0690; J1885; J1940; J2001; J2274; J2405; J2590; J3475; J3490; J7050

== ENCOUNTER 2020-06-08 13:23 | Outpatient (CLI) | payer BC | END 2020-06-08 13:24 | disposition home or self-care (01) | LOC: BICRAD 13:23 | PROVIDERS: ATTEND Family Medicine | DX: M54.5 Low back pain (principal); M25.561 Pain in right knee; M25.562 Pain in left knee; M47.816 Spondylosis without myelopathy or radiculopathy, lumbar region; M47.817 Spondylosis without myelopathy or radiculopathy, lumbosacral region; M17.0 Bilateral primary osteoarthritis of knee | CPT/HCPCS: 72100 ==

== ENCOUNTER 2021-02-01 15:51 | Outpatient (CLI) | payer BC | END 2021-02-01 15:52 | disposition home or self-care (01) | LOC: BICRAD 15:51 | PROVIDERS: ATTEND Family Medicine | DX: M54.2 Cervicalgia (principal); M25.511 Pain in right shoulder; M25.562 Pain in left knee; M25.561 Pain in right knee; M47.812 Spondylosis without myelopathy or radiculopathy, cervical region; M17.0 Bilateral primary osteoarthritis of knee | CPT/HCPCS: 72040 ==

== ENCOUNTER 2022-10-12 09:29 | Outpatient (CLI) | payer BC | END 2022-10-12 09:30 | disposition home or self-care (01) | LOC: SCSRAD 09:29 | PROVIDERS: ATTEND Physician Assistant | DX: R05.1 Acute cough (principal) | CPT/HCPCS: 71046 ==